=== PATIENT | male | born 1950 | race Caucasian/White ===

== ENCOUNTER 2018-08-18 12:56 | Emergency (ER) | payer MEDICARE, OTHER, MEDICAID ==
[2018-08-18] MEDS: HYDROmorphONE 2 MG/ML SYG IV (13:56)
[2018-08-18] MEDS: SOD CHLORIDE 0.9% 1,000 ML IV (13:56)
[2018-08-18] MEDS: ONDANSETRON 4 MG INJ IV (14:02)
[2018-08-18] MEDS: KETOROLAC 30 MG INJ IV (15:35)
== END 2018-08-18 16:57 | disposition home or self-care (01) ==
LOC: E/R 12:56
DX: M75.102 Unspecified rotator cuff tear or rupture of left shoulder, not specified as traumatic (principal); Z79.84 Long term (current) use of oral hypoglycemic drugs
CPT/HCPCS: 29105; 71045; 73030; 96374; 96375; 99284-25